=== PATIENT | male | born 1945 | race Caucasian/White ===

== ENCOUNTER 2018-12-23 05:36 | Emergency (ER) | payer MEDICARE, OTHER ==
--- NOTE | 2018-12-23 06:26 | ER Document Report ---
ED General - General Chief Complaint: Diarrhea Stated Complaint: DIARRHEA,CHEST HEAVINESS Time Seen by Provider: 12/23/18 06:02 Primary Care Provider: RAJWINDER,BECKY [Primary Care Provider] - Follow up as needed TRAVEL OUTSIDE OF THE [place] IN LAST 30 DAYS: No - HPI Notes: Patient is a 73-year-old male that presents to the emergency department for chief complaint of diarrhea and chest heaviness. Patient reports 25 episodes daily of diarrhea for the last 3 days. He states that he is now seeing some bright red blood when he wipes. He denies any recent travel or antibiotic use. He denies history of C. difficile in the past. He denies any sick contacts. Patient is not having any associated abdominal pain, fever, nausea or vomiting. He is also complaining of a left-sided chest heaviness that began yesterday afternoon. He believes that the heaviness has been constant and does seem to be worse when he is up exerting himself and frequently walking to the bathroom. He states that he always feels short of breath and his shortness of breath is unchanged from baseline currently. He does report having an VA in September 2018 but does not believe he had any stenting or bypass performed. Patient is not a great historian regarding his previous hospitalizations. Past Medical History: Hypertension, hyperlipidemia, CAD, Parkinson's, bipolar, history of H pylori, history of VA Past Surgical History: Reviewed in chart Social History: Denies drugs alcohol and tobacco Family History: Reviewed and noncontributory for presenting illness Allergies: Reviewed, see documented allergy list. REVIEW OF SYSTEMS: CONSTITUTIONAL : No fever No chills No diaphoresis No recent illness EENT: No vision changes No congestion No sore throat CARDIOVASCULAR: chest pain No palpitations RESPIRATORY: shortness of breath No cough No difficulty breathing GASTROINTESTINAL: No abdominal pain No nausea No vomiting diarrhea GENITOURINARY: No dysuria No hematuria No difficulty urinating MUSCULOSKELETAL: No back pain No leg pain No arm pain SKIN: No rashes No lesions LYMPHATIC: No swollen, enlarged glands. NEUROLOGICAL: No lightheadedness No headache No weakness No paresthesias PSYCHIATRIC: No anxiety No depression PHYSICAL EXAMINATION: Vital signs reviewed, nursing noted reviewed. GENERAL: Well-appearing, well-nourished and in no acute distress. HEAD: Atraumatic, normocephalic. EYES: Eyes appear normal, extraocular movements intact, sclera anicteric, conjunctiva are normal. ENT: nares patent, oropharynx clear without exudates. Moist mucous membranes. NECK: Normal range of motion, supple without lymphadenopathy LUNGS: Breath sounds clear to auscultation bilaterally and equal. No wheezes rales or rhonchi. HEART: Regular rate and rhythm without murmurs ABDOMEN: Protuberant, soft, nontender, normoactive bowel sounds. No rebound, guarding, or rigidity. No masses appreciated. EXTREMITIES: Nontender, good range of motion, no pitting or edema. NEUROLOGICAL: No focal neurological deficits. Moves all extremities spontaneously Motor and sensory grossly intact on exam. PSYCH: Normal mood, normal affect. SKIN: Warm, Dry, normal turgor, no rashes or lesions noted on exposed skin - Related Data Allergies/Adverse Reactions: lithium Allergy (Verified 12/23/18 05:55) Past Medical History - Social History Smoking Status: Never Smoker Family History: Reviewed & Not Pertinent Physical Exam - Vital signs Vitals: Temp Pulse Resp BP Pulse Ox 98.2 F 73 20 159/75 H 98 12/23/18 05:46 12/23/18 05:46 12/23/18 05:46 12/23/18 05:46 12/23/18 05:46 Course - Re-evaluation Re-evalutation: 12/23/18 06:26 Vitals reviewed. Nursing notes reviewed. Patient placed on telemetry monitoring. He is currently oxygenating well on room air and is afebrile and nontoxic in appearance. Patient has had no diarrhea since arriving in the emergency room. 12/23/18 08:03 Patient's lab work shows mild anemia, have no comparison labs to comment on the chronicity of his anemia. He is not tachycardic or lightheaded to suggest this is an acute process. Patient has complaint of trace red blood with bowel movements but denied any melena or black stools to suggest more severe GI bleeding. He does have a slight elevation in BUN at 28 and appears dehydrated, he was given IV fluids. The remainder of his work-up was unremarkable. He was unable to provide a stool sample in the ED but will be given outpatient orders for stool sample and C. difficile. Patient also has no elevated WBC count to suggest an acute infectious process including C. difficile. His troponin is normal and EKG shows no ischemic changes. His chest heaviness has been constant since yesterday without resolution and I am not suspicious for ACS at this po int. Patient encouraged to follow tomorrow at the NH for reevaluation. He was instructed to return immediately if he has any increased bleeding, lightheadedness, palpitations, nausea/vomiting or begins to have abdominal discomfort. Patient in agreement with plan of care and is stable for discharge. Laboratory 12/23/18 12/23/18 12/23/18 06:44 06:44 06:44 WBC 4.6 RBC 4.14 L Hgb 10.7 L Hct 33.7 L MCV 82 MCH 25.9 L MCHC 31.8 L RDW 16.9 H Plt Count 198 Seg Neutrophils % 55.9 Lymphocytes % 25.0 Monocytes % 18.2 H Eosinophils % 0.6 Basophils % 0.3 Absolute Neutrophils 2.6 Absolute Lymphocytes 1.2 Absolute Monocytes 0.8 Absolute Eosinophils 0.0 Absolute Basophils 0.0 PT 13.3 INR 0.96 APTT 44.2 H Sodium 145.4 H Potassium 4.2 Chloride 110 H Carbon Dioxide 24 Anion Gap 11 BUN 28 H Creatinine 1.17 Est GFR ( Amer) > 60 Est GFR (Non-Af Amer) > 60 Glucose 94 Calcium 9.1 Magnesium 1.9 Total Bilirubin 0.1 L Direct Bilirubin 0.1 Neonat Total Bilirubin Not Reportable Neonat Direct Bilirubin Not Reportable Neonat Indirect Bili Not Reportable AST 36 ALT 31 Alkaline Phosphatase 54 Troponin I Total Protein 7.2 Albumin 4.0 12/23/18 06:44 WBC RBC Hgb Hct MCV MCH MCHC RDW Plt Count Seg Neutrophils % Lymphocytes % Monocytes % Eosinophils % Basophils % Absolute Neutrophils Absolute Lymphocytes Absolute Monocytes Absolute Eosinophils Absolute Basophils PT INR APTT Sodium Potassium Chloride Carbon Dioxide Anion Gap BUN Creatinine Est GFR ( Amer) Est GFR (Non-Af Amer) Glucose Calcium Magnesium Total Bilirubin Direct Bilirubin Neonat Total Bilirubin Neonat Direct Bilirubin Neonat Indirect Bili AST ALT Alkaline Phosphatase Troponin I < 0.012 Total Protein Albumin Chest X-Ray 12/23/18 06:05 IMPRESSION: No acute cardiopulmonary findings. - Vital Signs Vital signs: Temp Pulse Resp BP Pulse Ox 98.2 F 73 15 129/77 H 97 12/23/18 05:46 12/23/18 05:46 12/23/18 07:01 12/23/18 07:01 12/23/18 07:01 - Laboratory Result Diagrams: 12/23/18 06:44 12/23/18 06:44 Laboratory results interpreted by me: 12/23/18 12/23/18 12/23/18 06:44 06:44 06:44 RBC 4.14 L Hgb 10.7 L Hct 33.7 L MCH 25.9 L MCHC 31.8 L RDW 16.9 H Monocytes % 18.2 H APTT 44.2 H Sodium 145.4 H Chloride 110 H BUN 28 H Total Bilirubin 0.1 L - EKG Interpretation by Me Additional EKG results interpreted by me: 12/23/18 07:54 Interpreted by myself [id number]: sinus bradycardia, rate 55, normal axis, no ectopy, no STEMI Discharge - Discharge Clinical Impression: Dehydration, Chest heaviness Diarrhea Qualifiers: Diarrhea type: unspecified type Qualified Code(s): R19.7 - Diarrhea, unspecified Condition: Stable Disposition: HOME, SELF-CARE Instructions: Diarrhea, Nonspecific ([facility]), Chest Pain of Unclear Cause ([facility]) Additional Instructions: Please return to the emergency department if you have any worsening, or concern of your symptoms. Please return to the emergency department if you develop chest pain, difficulty breathing, severe abdominal pain, or ongoing vomiting. Please follow-up with your primary care physician tomorrow and any other recommended physicians. If prescribed, take all medications as directed. If you have any questions or concerns do not hesitate to return the emergency department for evaluation. If you have stools that appear black or maroon or if you notice increased bright red blood in your stool you should return immediately to the emergency room for further evaluation. It is important to stay well-hydrated while having diarrhea and you need to increase the amount of water you are drinking daily Referrals: [facility] [Primary Care Provider] - Follow up tomorrow CHRIS GANT MD [ACTIVE STAFF] - Follow up in 3-5 days
[2018-12-23 06:55] LABS: ABSOLUTE LYMPHOCYTES (AUTO) 1.2 10^3/uL (0.5-4.7); ABSOLUTE MONOCYTES (AUTO) 0.8 10^3/uL (0.1-1.4); ABSOLUTE NEUT (AUTO) 2.6 10^3/uL (1.7-8.2); BASOPHILS % (AUTO) 0.3 % (0-2); EOSINOPHILS % (AUTO) 0.6 % (0-6); HEMATOCRIT 33.7 % (37.9-51.0); HEMOGLOBIN 10.7 g/dL (13.5-17.0); MEAN CORPUSCULAR HEMOGLOBIN 25.9 pg (27.0-33.4); MEAN CORPUSCULAR HGB CONC 31.8 g/dL (32.0-36.0); MEAN CORPUSCULAR VOLUME 82 fl (80-97); MONOCYTES % (AUTO) 18.2 % (3-13); PLATELET COUNT 198 10^3/uL (150-450); RED BLOOD COUNT 4.14 10^6/uL (4.35-5.55); RED CELL DISTRIBUTION WIDTH 16.9 % (11.5-14.0); SEGMENTED NEUTROPHILS % (AUTO) 55.9 % (42-78); TOTAL CELLS COUNTED % (AUTO) 100 %; WHITE BLOOD COUNT 4.6 10^3/uL (4.0-10.5)
[2018-12-23 06:59] LABS: INTERNATIONAL RATION (INR) 0.96; PROTHROMBIN TIME 13.3 SEC (11.4-15.4)
[2018-12-23 07:00] LABS: PARTIAL THROMBOPLASTIN TIME 44.2 SEC (23.5-35.8)
[2018-12-23 07:04] VITALS: BP 129/77
[2018-12-23 07:15] LABS: ALANINE AMINOTRANSFERASE 31 U/L (21-72); ALKALINE PHOSPHATASE 54 U/L (38-126); ANION GAP 11 (5-19); ASPARTATE AMINO TRANSFERASE 36 U/L (17-59); BILIRUBIN,DIRECT 0.1 mg/dL (0.0-0.4); BILIRUBIN,TOTAL 0.1 mg/dL (0.2-1.3); BLOOD UREA NITROGEN 28 mg/dL (7-20); CALCIUM 9.1 mg/dL (8.4-10.2); CARBON DIOXIDE 24 mmol/L (22-30); CHLORIDE 110 mmol/L (98-107); GLUCOSE 94 mg/dL (75-110); POTASSIUM 4.2 mmol/L (3.6-5.0); SODIUM 145.4 mmol/L (137-145); TOTAL PROTEIN 7.2 g/dL (6.3-8.2)
[2018-12-23] MEDS ORDERED: NORMAL SALINE 1000 ML 1,000 ML IV ONE (07:20)
--- NOTE | 2018-12-23 07:22 | RADIOLOGY REPORT (SQ) ---
EXAM DESCRIPTION: XR CHEST 1 VIEW COMPLETED DATE/TME: 12/23/2018 06:05 CLINICAL HISTORY: 73 years Male, chest pain COMPARISON: None. NUMBER OF VIEWS/TECHNIQUE: 1/AP FINDINGS: Adequate lung volume, clear parenchyma, normal cardiac silhouette, and intact bony thorax.Atherosclerotic vascular disease. Degenerative disc disease. IMPRESSION: No acute cardiopulmonary findings.
--- NOTE | 2018-12-23 09:43 | EKG REPORT ---
SEVERITY:- NORMAL ECG - SINUS RHYTHM : Confirmed by: Ethel Snowden MD 23-Dec-2018 09:41:43
== END 2018-12-23 08:57 | disposition home or self-care (01) ==
LOC: ER 05:36
DX: R19.7 Diarrhea, unspecified (principal); E86.0 Dehydration; R09.89 Other specified symptoms and signs involving the circulatory and respiratory systems; R06.02 Shortness of breath; I10 Essential (primary) hypertension; I25.2 Old myocardial infarction; I25.10 Atherosclerotic heart disease of native coronary artery without angina pectoris; G20 Parkinson's disease; R07.9 Chest pain, unspecified; D64.9 Anemia, unspecified; R00.1 Bradycardia, unspecified; Z88.8 Allergy status to other drugs, medicaments and biological substances
CPT/HCPCS: 93005; 99284; 96360; 36415; 87045; 87205; 83735; 85025; 85610; 85730; 82272; 80053; 84484; 87493; 71045; 93010; J7030

== ENCOUNTER 2019-05-17 09:59 | Day surgery (SDC) | payer MEDICARE, OTHER ==
[~2019-05-17 09:59] MED LIST: LIDOCAINE 2% INJ-PF (100 MG/5 ML) SYRINGE ONE; PROPOFOL INJ 200 MG/20 ML VIAL IV ONE
--- NOTE | 2019-05-17 12:02 | Operative Report ---
Operative Report DATE OF SURGERY: 05/17/19 Operative Report: The risks, benefits and alternatives of the procedure including the risk of bleeding, perforation requiring surgery have been explained to the patient in detail and informed consent has been obtained. Patient is taken back to the endoscopy suite and placed in the left, lateral decubital position. Timeout was called. Propofol medication is administered. Rectal examination is done which did not reveal any masses, tears or fissures. An Olympus videoscope was introduced into the patient's rectum. The scope was then carefully advanced all the way to the cecum. The cecum was identified by the usual anatomical landmarks of the ileocecal valve as well as the appendiceal office. Photodocumentation is obtained. Scope was then sequentially pulled back via the various segments of the colon including the ascending colon, hepatic flexure, transverse colon, splenic flexure, descending colon finding to the rectosigmoid portions of the colon. Retroflexion maneuvers performed. The risks benefits and alternatives of the procedure explained to the patient in detail and informed consent is obtained.A GIF Olympus video scope was inserted into the patient's mouth and hypopharynx, the esophagus is identified intubated and insufflated, the scope was then advanced through the esophagus stomach and duodenum ,retroflexion maneuver is done ,the esophagus stomach and first and second portions of the duodenum examined. PREOPERATIVE DIAGNOSIS: Iron deficiency anemia rule out GI bleed POSTOPERATIVE DIAGNOSIS: Ascending colon polypoid lesion, possible lipoma status post biopsy. Internal hemorrhoids. Gastritis status post biopsy. No ulcers noted. No GI cause for bleeding noted OPERATION: Colonoscopy with biopsy. EGD with biopsy SURGEON: CHRIS GANT ANESTHESIA: LMAC TISSUE REMOVED OR ALTERED: As noted above. COMPLICATIONS: None. ESTIMATED BLOOD LOSS: None. INTRAOPERATIVE FINDINGS: As noted above. PROCEDURE: Patient tolerated the procedure well. No immediate postprocedure complications are noted. Patient is discharged in good condition. Discharge date 05/17/2019. Discharge diet: Regular. Discharge activity: Regular. 2 to 3-week follow-up to discuss findings. Patient is instructed to call the office or proceed to the emergency room should there be any further questions. Wait on the pathology.
[2019-05-17 12:24] VITALS: BP 132/60
== END 2019-05-17 12:10 | disposition home or self-care (01) ==
LOC: END 09:59
PROVIDERS: ATTEND Internal Medicine Gastroenterology
DX: K29.50 Unspecified chronic gastritis without bleeding (principal); K64.8 Other hemorrhoids; K63.9 Disease of intestine, unspecified; D50.0 Iron deficiency anemia secondary to blood loss (chronic)
CPT/HCPCS: 43239; 45380; 88342 ×2; 88305 ×2; 00813; J2001; J2704; 813

== ENCOUNTER 2019-07-18 12:27 | Emergency (ER) | payer OTHER ==
--- NOTE | 2019-07-18 12:37 | ER Document Report ---
ED General - General Chief Complaint: General Weakness Stated Complaint: WEAKNESS Time Seen by Provider: 07/18/19 12:34 Primary Care Provider: [facility] [Primary Care Provider] - Follow up in 1 week Mode of Arrival: Medic Information source: Patient, Emergency Med Personnel Notes: 73-year-old male with history of Parkinson's presents emergency department with complaints of progressive weakness and increasing falls. Reports he is fallen 5 times since Monday. Reports he is falling at least 25-30 times this past year. Reports he was diagnosed with Parkinson's a year and a half ago. He quit his job in September. Reports increased weakness since that time. He denies shortness of breath. Denies fever vomiting diarrhea. Denies chest pains. Reports he will just be walking and fall over. Transported today because he was at the [place] and fell in the lobby landing on his left hip. Patient did not hit his head. No change in LOC. Is not taking anticoagulants. TRAVEL OUTSIDE OF THE [place] IN LAST 30 DAYS: No - HPI Onset: Other Onset/Duration: Persistent Quality of pain: Achy Associated symptoms: None Exacerbated by: Walking Relieved by: Denies Similar symptoms previously: Yes Recently seen / treated by doctor: Yes - Related Data Allergies/Adverse Reactions: No Known Allergies Allergy (Unverified 05/17/19 10:16) Past Medical History - General Information source: Patient - Social History Smoking Status: Unknown if Ever Smoked Cigarette use (# per day): No Frequency of alcohol use: None Drug Abuse: None Lives with: Family Family History: Reviewed & Not Pertinent - Past Medical History Cardiac Medical History: Reports: Hx Heart Attack - HEART DAMAGE, Hx Hypertension Pulmonary Medical History: Reports: Hx Asthma Denies: Hx Bronchitis, Hx COPD, Hx Pneumonia Neurological Medical History: Reports: Hx Parkinson's Disease. Denies: Hx Cerebrovascular Accident, Hx Seizures Renal/ Medical History: Denies: Hx Peritoneal Dialysis Musculoskeletal Medical History: Reports Hx Arthritis Psychiatric Medical History: Reports: Hx Bipolar Disorder Surgical Hx: Negative - Immunizations Hx Diphtheria, Pertussis, Tetanus Vaccination: No Review of Systems - Review of Systems Notes: Review HPI for review of systems., All other systems negative Physical Exam - Vital signs Vitals: Temp Pulse Resp BP Pulse Ox 95.7 F L 80 13 139/82 H 95 07/18/19 12:27 07/18/19 12:27 07/18/19 12:27 07/18/19 12:27 07/18/19 12:27 - General General appearance: Alert, Anxious In distress: None - HEENT Head: Normocephalic Eyes: Normal Conjunctiva: Normal Extraocular movements intact: Yes Pupils: PERRL Ears: Normal External canal: Normal Tympanic membrane: Normal Nasal: Normal Mouth/Lips: Normal Mucous membranes: Moist Pharynx: Normal Neck: Normal, Supple. No: Lymphadenopathy - Respiratory Respiratory status: No respiratory distress Chest status: Nontender Breath sounds: Normal Chest palpation: Normal - Cardiovascular Rhythm: Regular Heart sounds: Normal auscultation Murmur: No - Abdominal Inspection: Normal Distension: No distension Bowel sounds: Normal Tenderness: Nontender Organomegaly: No organomegaly - Back Back: Normal, Nontender - Extremities General upper extremity: Normal color, Normal ROM General lower extremity: Normal color, Normal ROM - Neurological Neuro grossly intact: Yes Cognition: Normal Orientation: AAOx4 [place] Coma Scale Eye Opening: Spontaneous [place] Coma Scale Verbal: Oriented [place] Coma Scale Motor: Obeys Commands [place] Coma Scale Total: 15 Speech: Normal - Psychological Associated symptoms: Normal affect, Normal mood - Skin Skin Temperature: Warm Skin Moisture: Dry Skin Color: Normal Course - Re-evaluation Re-evalutation: 07/18/19 14:17 This 73-year-old male presents emergency department with complaints of increased weakness, frequent falling. He reports he was diagnosed with Parkinson's approximately 1/2 years ago. 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 He now lives with his daughter. He reports he is fallen 25-30 times this past year and 5 times this past week. He did follow-up with his provider and they upped his medications a couple weeks ago. All labs are unremarkable CT and x-ray are negative. Dr Heredia was consulted. Labs x-ray CT results and patient's history were discussed. She advised to ensure patient is able to a mbulate. Patient was ambulated around the emergency department utilizing his walker without any problems. He was instructed on all results. We discussed Parkinson's, postural instability and the importance of keeping soto. He was encouraged to use his walker always asked for assistance before he got up. He verbalized understanding to all instructions. His son is picking him up. Cervical Spine CT 07/18/19 12:48 IMPRESSION: Degenerative disc disease, spondylosis, and facet arthropathy. Head CT 07/18/19 12:48 IMPRESSION: Mild involutional changes with mild chronic microvascular ischemia. No acute intracranial imaging findings. EVIDENCE OF ACUTE STROKE: NO. Hip X-Ray 07/18/19 12:48 IMPRESSION: No acute finding in the left hip. Study is slightly lacking because of absence of a true AP view. 07/18/19 12:40 07/18/19 12:40 MCV 92 fl (80-97) 07/18/19 12:40 MCH 31.5 pg (27.0-33.4) 07/18/19 12:40 MCHC 34.2 g/dL (32.0-36.0) 07/18/19 12:40 RDW 14.8 % (11.5-14.0) H 07/18/19 12:40 Seg Neutrophils % 58.2 % (42-78) 07/18/19 12:40 Chloride 107 mmol/L (98-107) 07/18/19 12:40 Carbon Dioxide 30 mmol/L (22-30) 07/18/19 12:40 Anion Gap 8 (5-19) 07/18/19 12:40 Est GFR ( Amer) > 60 (>60) 07/18/19 12:40 Glucose 117 mg/dL (75-110) H 07/18/19 12:40 Calcium 9.1 mg/dL (8.4-10.2) 07/18/19 12:40 Total Bilirubin 0.5 mg/dL (0.2-1.3) 07/18/19 12:40 AST 26 U/L (17-59) 07/18/19 12:40 Alkaline Phosphatase 61 U/L (38-126) 07/18/19 12:40 Total Protein 7.4 g/dL (6.3-8.2) 07/18/19 12:40 Albumin 4.1 g/dL (3.5-5.0) 07/18/19 12:40 Urine Color YELLOW 07/18/19 15:31 Urine Appearance CLEAR 07/18/19 15:31 Urine pH 5.0 (5.0-9.0) 07/18/19 15:31 Ur Specific [place] 1.013 07/18/19 15:31 Urine Protein NEGATIVE mg/dL (NEGATIVE) 07/18/19 15:31 Urine Glucose (UA) NEGATIVE mg/dL (NEGATIVE) 07/18/19 15:31 Urine Ketones NEGATIVE mg/dL (NEGATIVE) 07/18/19 15:31 Urine Blood NEGATIVE (NEGATIVE) 07/18/19 15:31 Urine Nitrite NEGATIVE (NEGATIVE) 07/18/19 15:31 Ur Leukocyte Esterase TRACE (NEGATIVE) H 07/18/19 15:31 Urine WBC (Auto) 3 /HPF 07/18/19 15:31 Urine RBC (Auto) 0 /HPF 07/18/19 15:31 07/18/19 12:40 Troponin I < 0.012 07/18/19 19:01 Dictation of this chart was performed using voice recognition software; therefore, there may be some unintended grammatical errors. 07/18/19 19:04 07/18/19 19:05 - Vital Signs Vital signs: Temp Pulse Resp BP Pulse Ox 97.6 F 67 15 152/92 H 97 07/18/19 17:27 07/18/19 17:27 07/18/19 17:27 07/18/19 17:27 07/18/19 17:27 07/18/19 12:36 EMS vital signs 137/82, 76, 18, BGL 136 - Laboratory Result Diagrams: 07/18/19 12:40 07/18/19 12:40 Laboratory results interpreted by me: 07/18/19 07/18/19 07/18/19 12:40 12:40 15:31 RDW 14.8 H Plt Count 143 L BUN 27 H Glucose 117 H Ur Leukocyte Esterase TRACE H - Diagnostic Test Radiology reviewed: Image reviewed, Reports reviewed - EKG Interpretation by Me EKG shows normal: Sinus rhythm Rate: Normal Rhythm: NSR Additional EKG results interpreted by me: 07/18/19 16:[address] elevation no T wave inversion Discharge - Discharge Clinical Impression: General weakness, Parkinson disease Condition: Stable Disposition: HOME, SELF-CARE Instructions: Parkinson's Disease ([facility]), Weakness ([facility]) Additional Instructions: *You have been evaluated for utilized weakness, Parkinson's 1 week *Follow up with a primary care provider within *Return to ED for worsening condition, changes, needs Monitor your blood pressure. Your blood pressure was elevated today. This may be because you were anxious, in pain or because you need medication. It is important to follow up with your primary care provider for full evaluation. Forms: Elevated Blood Pressure Referrals: [facility] [Primary Care Provider] - Follow up in 1 week
[2019-07-18 12:57] LABS: ABSOLUTE EOSINOPHILS # (AUTO) 0.1 10^3/uL (0.0-0.6); ABSOLUTE LYMPHOCYTES (AUTO) 1.4 10^3/uL (0.5-4.7); ABSOLUTE MONOCYTES (AUTO) 0.5 10^3/uL (0.1-1.4); ABSOLUTE NEUT (AUTO) 2.7 10^3/uL (1.7-8.2); BASOPHILS % (AUTO) 0.4 % (0-2); EOSINOPHILS % (AUTO) 1.5 % (0-6); HEMOGLOBIN 14.3 g/dL (13.5-17.0); MEAN CORPUSCULAR HEMOGLOBIN 31.5 pg (27.0-33.4); MEAN CORPUSCULAR HGB CONC 34.2 g/dL (32.0-36.0); MEAN CORPUSCULAR VOLUME 92 fl (80-97); MONOCYTES % (AUTO) 9.9 % (3-13); PLATELET COUNT 143 10^3/uL (150-450); RED BLOOD COUNT 4.55 10^6/uL (4.35-5.55); RED CELL DISTRIBUTION WIDTH 14.8 % (11.5-14.0); SEGMENTED NEUTROPHILS % (AUTO) 58.2 % (42-78); TOTAL CELLS COUNTED % (AUTO) 100 %; WHITE BLOOD COUNT 4.6 10^3/uL (4.0-10.5)
[2019-07-18 13:19] LABS: ALBUMIN 4.1 g/dL (3.5-5.0); ALKALINE PHOSPHATASE 61 U/L (38-126); ANION GAP 8 (5-19); ASPARTATE AMINO TRANSFERASE 26 U/L (17-59); BILIRUBIN,DIRECT 0.2 mg/dL (0.0-0.4); BILIRUBIN,TOTAL 0.5 mg/dL (0.2-1.3); BLOOD UREA NITROGEN 27 mg/dL (7-20); CALCIUM 9.1 mg/dL (8.4-10.2); CARBON DIOXIDE 30 mmol/L (22-30); CHLORIDE 107 mmol/L (98-107); GLUCOSE 117 mg/dL (75-110); POTASSIUM 4.3 mmol/L (3.6-5.0); TOTAL PROTEIN 7.4 g/dL (6.3-8.2)
--- NOTE | 2019-07-18 14:08 | RADIOLOGY REPORT (SQ) ---
EXAM DESCRIPTION: CT HEAD WITHOUT COMPLETED DATE/TIME: 07/18/2019 1:28 pm REASON FOR STUDY: fall, increased falls, weakness COMPARISON: None. TECHNIQUE: Axial images acquired through the brain without intravenous contrast. Images reviewed wi th bone, brain and subdural windows. Additional sagittal and coronal reconstructions were generated. Images stored on PACS. All CT scanners at this facility use dose modulation, iterative reconstruction, and/or weight based d osing when appropriate to reduce radiation dose to as low as reasonably achievable (ALARA). [facility]: Dose Right [facility]: CareDose [facility]: Dose Right [facility]: Teradose 4D [facility]: Smart Jip[employer] RADIATION DOSE: CT Rad equipment meets quality standard of care and radiation dose reduction techniq ues were employed. CTDIvol: 23.1 mGy. DLP: 533 mGy-cm. mGy. LIMITATIONS: None. FINDINGS: VENTRICLES: Prominent ventricles secondary to involutional atrophy. CEREBRUM: No masses. No hemorrhage. No midline shift. No evidence for acute infarction. Few scatte red areas of low density in the white matter most likely chronic small vessel ischemic changes. CEREBELLUM: No masses. No hemorrhage. No alteration of density. No evidence for acute infarction. EXTRAAXIAL SPACES: No fluid collections. No masses. ORBITS AND GLOBE: No intra- or extraconal masses. Normal contour of globe without masses. CALVARIUM: No fracture. PARANASAL SINUSES: No fluid or mucosal thickening. SOFT TISSUES: No mass or hematoma. OTHER: No other significant finding. IMPRESSION: Mild involutional changes with mild chronic microvascular ischemia. No acute intracrani al imaging findings. EVIDENCE OF ACUTE STROKE: NO. COMMENT: Quality ID # [id number]: Final reports with documentation of one or more dose reduction techniques (e.g., Automated exposure control, adjustment of the mA and/or kV according to patient size, use of iterative reconstruction technique) TECHNICAL DOCUMENTATION: JOB ID: [id number] [employer]- All Rights Reserved Reading location - IP/workstation name: [email or web address]
--- NOTE | 2019-07-18 14:11 | RADIOLOGY REPORT (SQ) ---
EXAM DESCRIPTION: CT CERVICAL SPINE WITHOUT COMPLETED DATE/TIME: 07/18/2019 1:28 pm REASON FOR STUDY: fall, increased falls, weakness COMPARISON: None. TECHNIQUE: Axial images acquired through the cervical spine without intravenous contrast. Images re viewed with lung, soft tissue and bone windows. Reconstructed coronal and sagittal MPR images review ed. Images stored on PACS. All CT scanners at this facility use dose modulation, iterative reconstruction, and/or weight based d osing when appropriate to reduce radiation dose to as low as reasonably achievable (ALARA). [facility]: Dose Right [facility]: CareDose [facility]: Dose Right [facility]: Teradose 4D [facility]: Smart [employer] RADIATION DOSE: CT Rad equipment meets quality standard of care and radiation dose reduction techniq ues were employed. CTDIvol: 24.3 mGy. DLP: 437 mGy-cm. mGy. LIMITATIONS: None. FINDINGS: ALIGNMENT: Anatomic. MINERALIZATION: Normal. VERTEBRAL BODIES: No fractures or dislocation. DISCS: Discs are narrowed from C3-C7 with marginal osteophytes. FACETS, LATERAL MASSES, POSTERIOR ELEMENTS: Hypertrophic facet changes seen on the left in the mid ce rvical spine. HARDWARE: None in the spine. VISUALIZED RIBS: No fractures. LUNG APICES AND SOFT TISSUES: No significant or acute findings. OTHER: No other significant finding. IMPRESSION: Degenerative disc disease, spondylosis, and facet arthropathy. TECHNICAL DOCUMENTATION: JOB ID: [id number] Quality ID # [id number]: Final reports with documentation of one or more dose reduction techniques (e.g., Au tomated exposure control, adjustment of the mA and/or kV according to patient size, use of iterative reconstruction technique) 2010 [employer]- All Rights Reserved Reading location - IP/workstation name: [email or web address]
--- NOTE | 2019-07-18 14:12 | RADIOLOGY REPORT (SQ) ---
EXAM DESCRIPTION: HIP LEFT AP/LATERAL COMPLETED DATE/TIME: 07/18/2019 1:31 pm REASON FOR STUDY: fall, pain COMPARISON: None. NUMBER OF VIEWS: Two views. TECHNIQUE: AP pelvis and additional frog-leg view of the left hip. LIMITATIONS: A true AP view of the left hip is lacking. FINDINGS: MINERALIZATION: Normal. LEFT HIP: No fracture or dislocation. No worrisome bone lesions. RIGHT HIP: No fracture or dislocation. No worrisome bone lesions. PUBIS AND ISCHIUM: No fracture. PELVIS: No fracture. SACRUM: No fracture or dislocation. No worrisome bone lesions. LOWER LUMBAR SPINE: No fracture or dislocation. No worrisome bone lesions. No significant disc disea se. SOFT TISSUES: No findings. OTHER: No other significant finding. IMPRESSION: No acute finding in the left hip. Study is slightly lacking because of absence of a ruiz e AP view. TECHNICAL DOCUMENTATION: JOB ID: [id number] [employer]- All Rights Reserved Reading location - IP/workstation name: [email or web address]
[2019-07-18 16:09] LABS: APPEARANCE,URINE CLEAR; BILIRUBIN,URINE NEGATIVE (NEGATIVE); COLOR,URINE YELLOW; GLUCOSE, URINE NEGATIVE (NEGATIVE); KETONES,URINE NEGATIVE (NEGATIVE); LEUKOCYTE ESTERASE,URINE TRACE (NEGATIVE); NITRITE,URINE NEGATIVE (NEGATIVE); PROTEIN,URINE NEGATIVE (NEGATIVE); URINE SPECIFIC GRAVITY 1.013; UROBILINOGEN,URINE NEGATIVE mg/dL (<2.0)
[2019-07-18 17:10] VITALS: BP 152/92
--- NOTE | 2019-07-18 19:16 | EKG REPORT ---
SEVERITY:- ABNORMAL ECG - SINUS RHYTHM LEFT VENTRICULAR HYPERTROPHY : Confirmed by: Ethel Snowden MD 18-Jul-2019 19:15:34
== END 2019-07-18 17:27 | disposition home or self-care (01) ==
LOC: ER 12:27
DX: Z04.3 Encounter for examination and observation following other accident (principal); G20 Parkinson's disease; R53.1 Weakness; R29.6 Repeated falls; J45.909 Unspecified asthma, uncomplicated; I10 Essential (primary) hypertension; M50.30 Other cervical disc degeneration, unspecified cervical region; M47.9 Spondylosis, unspecified; I67.82 Cerebral ischemia
CPT/HCPCS: 36415; 70450; 72125; 80053; 81001; 84484; 85025; 93005; 93010; 99285